=== PATIENT | female | born 1955 | race Hispanic/Latino ===

== ENCOUNTER 2018-02-21 07:14 | Day surgery (SDC) | payer OTHER ==
[2018-02-21 07:58] VITALS: TEMP 97
--- NOTE | 2018-02-21 08:29 | CP.SDSHP ---
Same Day Surgery H & P - History Proposed Procedure: EGD. Colonoscopy - Previous Medical/Surgical History Cardiac: Hypertension, Other (hyperlipidemia, Fatty Liver, ) Endocrine/Metabolic: Diabetes, Obesity Previous Surgical History: Cataracts bilat. ALYSE/BSO. GB. R Clavicle fracture - Allergies Allergies: Allergies No Known Allergies Allergy (Verified 02/20/18 09:44) - Physical Exam Vital Signs: Vital Signs 02/21/18 07:54 Temperature 97 F L Pulse Rate 89 Respiratory 20 Rate Blood Pressure 122/91 H O2 Sat by Pulse 97 Oximetry Mental Status: Alert & Oriented x3 Neuro: WNL Heart: WNL Lungs: WNL GI: WNL - Impression Impression: heartburn. Constipation. Screening for colon cancer Pt. Evaluated Today:Candidate for Anesthesia & Procedure: Yes - Date & Time Date: 02/21/18 Time: 08:29 Short Stay Discharge - Short Stay Discharge Admitting Diagnosis/Reason for Visit: LEFT UPPER QUADRANT, HEARTBURN, CHANGE IN BOWEL SMILEY Disposition: HOME/ ROUTINE
[2018-02-21] MEDS ORDERED: Lactated Ringer's 500 ML IV ONE (08:33)
[2018-02-21] MEDS ORDERED: Propofol 10 mg/ml Inj (20 ML) ONE ×2 (08:35→08:49)
[2018-02-21] MEDS ORDERED: Lidocaine Hydrochloride 5 ML INJ ONE (08:35)
[2018-02-21] MEDS ORDERED: ePHEDrine 50 mg/ml Inj ONE (08:59)
[2018-02-21 15:29] VITALS: O2SAT 96
[2018-02-21 15:34] VITALS: BP 130/68; PULSE 85; RESP 18
== END 2018-02-21 10:15 | disposition home or self-care (01) ==
LOC: C.ENDO 07:14
PROVIDERS: ATTEND Internal Medicine Gastroenterology
DX: K63.5 Polyp of colon (principal); K76.0 Fatty (change of) liver, not elsewhere classified; K64.1 Second degree hemorrhoids; E11.9 Type 2 diabetes mellitus without complications; E66.9 Obesity, unspecified; E78.5 Hyperlipidemia, unspecified; I10 Essential (primary) hypertension; K21.0 Gastro-esophageal reflux disease with esophagitis; K29.60 Other gastritis without bleeding; K59.00 Constipation, unspecified
CPT/HCPCS: 43239; 45385; 88305; 88312; 88313; 88342; J2001; J2704; J7120